=== PATIENT | male | born 1980 | race African-American/Black ===

== ENCOUNTER 2019-11-22 11:57 | Emergency (ER) | payer OTHER ==
[~2019-11-22] VITALS: Ht 175.3 cm; Wt 65.8 kg
[2019-11-22 12:54] LABS: EOSINOPHILS 1.6 % (0.0-3.0); HEMATOCRIT 40.6 % (42.0-52.0); HEMOGLOBIN 14.3 gm/dL (14.0-18.0); LYMPHOCYTES 40.2 % (24.0-44.0); MCH 31.8 pg (26.0-34.0); MCHC 35.1 g/dL (28.0-37.0); MCV 90.5 fL (80.0-100.0); MONOCYTES 9.3 % (1.0-8.0); POLYS 47.9 % (36.0-66.0); RBC 4.49 mil/uL (4.50-6.00); RDW 13.5 % (10.5-14.5); URINE BILIRUBIN NEGATIVE (Negative); URINE BLOOD NEGATIVE (Negative); URINE CLARITY CLEAR; URINE COLOR YELLOW; URINE GLUCOSE-RANDOM* NEGATIVE (Negative); URINE KETONES NEGATIVE (Negative); URINE LEUKOCYTES-REFLEX NEGATIVE (Negative); URINE NITRITE-REFLEX NEGATIVE (Negative); URINE PROTEIN (DIPSTICK) NEGATIVE (Negative); URINE SPECIFIC GRAVITY >= 1.030 (1.005-1.035); URINE UROBILINOGEN 0.2 E.U./dl (0.2-1.0); WBC 4.1 thou/uL (4.0-11.0)
[2019-11-22 13:20] LABS: CALCIUM 8.8 mg/dL (8.5-10.1); CREATININE 1.3 mg/dL (0.7-1.3); POTASSIUM 3.8 mmol/L (3.5-5.1)
[2019-11-22 13:27] LABS: ALBUMIN 3.9 g/dL (3.4-5.0); DIRECT BILIRUBIN 0.1 mg/dL (<0.1-0.2); TOTAL BILIRUBIN 0.6 mg/dL (0.2-1.0); TOTAL PROTEIN 7.7 g/dL (6.4-8.2)
--- NOTE | 2019-11-22 13:29 | EKG ---
[facility] [place] [address] ELECTROCARDIOGRAM REPORT Name: JUANCHO SOFIA Room #: REG [facility]..#: [id number] Admission: 11/22/19 Attend Phys: Discharge: Date of : 78 Report #: [id number] THIS REPORT FOR: cc: IDALMIS Stephen family physician/PCP IDALMIS Stephen family physician/PCP Ralph Penny MD [facility] ~ THIS REPORT FOR: //name// [facility] ED Test Date: 2019-11-22 Test Time: 12:38:08 Pat Name: JUANCHO SOFIA Department: Room: Gender: M [employer]: : 1980 Requested By: Velia Ricketts Order Number: [id number] MD: Ralph Penny Measurements Intervals [place] Rate: 55 P: 96 IA: 203 QRS: 84 QRSD: 75 T: 57 QT: 381 QTc: 365 Interpretive Statements Sinus rhythm Borderline prolonged IA interval Probable left atrial enlargement ST elevation suggests acute pericarditis Baseline wander in lead(s) I No previous ECG available for comparison Electronically Signed On 11-22-2019 13:28:56 CDT by Ralph Penny [email or web address] <ELECTRONICALLY SIGNED> By: Ralph Penny MD, FACC 11/22/19 1328 1238 1238 Ralph Penny MD, [facility] /EPI
[2019-11-22 13:36] LABS: PLATELET COUNT 167 thou/uL (150-400); PLATELET ESTIMATE NORMAL
[2019-11-22 14:07] VITALS: BP 129/79
== END 2019-11-22 14:13 | disposition home or self-care (01) ==
LOC: ER 11:57
PROVIDERS: Emergency Medicine
DX: R55 Syncope and collapse (principal); M54.5 Low back pain; Z91.048 Other nonmedicinal substance allergy status